=== PATIENT | male | born 1955 | race Caucasian/White ===

== ENCOUNTER → 2021-06-28 12:06 | Outpatient (CLI) | payer MEDICARE, OTHER, SELFPAY ==
--- NOTE | 2021-06-28 12:12 | DI.MRI.S_ITS ---
PROCEDURE: MR KNEE LT WO CON INDICATIONS: Other tear of medial meniscus, current injury, lef TECHNIQUE: Noncontrast sagittal PD fast spin echo and T2 fast spin echo with fat saturation, sagittal 3-D FLASH with fat saturation; coronal T1 spin echo and PD fast spin echo with fat saturation, and axial PD fast spin echo with fat saturation through the knee. COMPARISON: None. FINDINGS: Menisci: Medial meniscus: Intrasubstance signal changes extend to the superior articular surface of the body in keeping with tear. There is also ill-defined macerated tear involving the posterior horn/root junction. Partial extrusion of the medial meniscus is noted. Lateral meniscus:. Marked truncation of the free margin of the lateral meniscal body. Cruciate ligaments: Anterior cruciate ligament: Intact. Posterior cruciate ligament: Intact. Medial structures: The medial collateral ligament: Intact. Semimembranosus tendon: Mild insertional tendinopathy. Visualized pes anserinus tendons: Intact. Bursal fluid: none. Lateral structures: The lateral collateral ligament intact. Biceps femoris tendon appears intact. Popliteus tendon grossly unremarkable. Iliotibial band appears intact. Anterior structures: Quadriceps tendon: Intact. Medial patellofemoral ligament: Intact. Lateral patellofemoral ligament: Intact. Patellar tendon: Mild tendinopathy. Anterior soft tissues: Prepatellar and superficial infrapatellar subcutaneous edema/fluid. Deep infrapatellar region: Normal. Bones and cartilage: Marrow: No focal marrow contusion or discrete low signal fracture line. Medial compartment: Full-thickness femoral and tibial articular cartilage loss with subchondral marrow edema and cystic change. Lateral compartment: Diffuse partial-thickness femoral and tibial cartilage loss. Patellofemoral compartment: Mild diffuse partial-thickness loss of the patellar cartilage with near full-thickness areas of fissuring and subchondral edema/cystic change involving the lateral patellar facet. The femoral trochlear cartilage appears grossly intact. Joint space: Effusion: Large joint effusion. Popliteal fossa: Cyr's cyst which may be partially ruptured. It measures approximately 6 cm in the cephalocaudal dimension. Loose bodies: None. IMPRESSION: Medial meniscal tear involving the body and junction of the posterior horn and root, with partial extrusion. Marked truncation of the free margin of the lateral meniscal body. Severe degenerative joint disease with full-thickness articular cartilage loss in the medial compartment. Large joint effusion Partially ruptured Cyr's cyst Mild patellar tendinopathy Dictated by: Estuardo Nielsen M.D. on 06/28/2021 at 13:21 Approved by: Estuardo Nielsen M.D. on 06/28/2021 at 13:27
== END ==
PROVIDERS: PCP Family Medicine; Referring Provider Orthopaedic Surgery; Visit Provider Orthopaedic Surgery
DX: S83.242A Other tear of medial meniscus, current injury, left knee, initial encounter (principal); M17.12 Unilateral primary osteoarthritis, left knee; M71.22 Synovial cyst of popliteal space [Baker], left knee; M25.462 Effusion, left knee; X58.XXXA Exposure to other specified factors, initial encounter
CPT/HCPCS: 73721

== ENCOUNTER → 2022-01-30 09:52 | Outpatient (CLI) | payer MEDICARE, OTHER, SELFPAY ==
[2022-01-30 11:30] LABS: Prostate Specific Antigen 0.473 ng/mL (0.10-4.00)
== END ==
PROVIDERS: PCP Family Medicine; Referring Provider Specialist; Visit Provider Specialist
DX: R97.20 Elevated prostate specific antigen [PSA] (principal); N40.0 Benign prostatic hyperplasia without lower urinary tract symptoms; R36.1 Hematospermia; Z68.26 Body mass index [BMI] 26.0-26.9, adult
CPT/HCPCS: 36415; 51798; 81002; 84153; 99214

== ENCOUNTER → 2022-09-03 15:02 | Outpatient (CLI) | payer MEDICARE, OTHER, SELFPAY ==
[2022-09-03 16:04] LABS: Prostate Specific Antigen 1.27 ng/mL (0.10-4.00)
== END ==
PROVIDERS: PCP Family Medicine; Referring Provider Specialist; Visit Provider Specialist
DX: N40.0 Benign prostatic hyperplasia without lower urinary tract symptoms (principal)
CPT/HCPCS: 36415; 84153

== ENCOUNTER → 2022-11-08 08:39 | Outpatient (CLI) | payer MEDICARE, OTHER, SELFPAY ==
[2022-11-08 10:20] LABS: HEMOLYSIS < 15 (0-50)
[2022-11-08 10:25] LABS: BUN Creatinine Ratio 23.1 (6-22); Blood Urea Nitrogen 24 mg/dL (9-20); Calcium 9.3 mg/dL (8.4-10.2); Carbon Dioxide 27 mmol/L (22-32); Chloride 105 mmol/L (98-107); Estimated Glomerular Filt Rate > 60 mL/min (>60); Glucose 85 mg/dL (80-110); Potassium 4.6 mmol/L (3.4-5.1); Sodium 140 mmol/L (137-145)
[2022-11-14 20:21] LABS: Prostate Specific Antigen 0.958 ng/mL (0.10-4.00)
== END ==
PROVIDERS: PCP Family Medicine; Referring Provider Specialist; Visit Provider Specialist
DX: Z01.812 Encounter for preprocedural laboratory examination (principal); N40.0 Benign prostatic hyperplasia without lower urinary tract symptoms; R36.1 Hematospermia
CPT/HCPCS: 36415; 80048; 84153

== ENCOUNTER → 2022-11-11 10:48 | Outpatient (CLI) | payer MEDICARE, OTHER, SELFPAY ==
--- NOTE | 2022-11-11 10:50 | DI.CT.S_ITS ---
PROCEDURE: CT IVP A/P W/WO INDICATIONS: Hematuria TECHNIQUE: 5 mm thick noncontrast images acquired from the diaphragm to the symphysis pubis. After the administration of intravenous contrast, 5 mm thick images acquired from the diaphragm to the symphysis pubis after a 10-minute delay using a split bolus technique. 2 mm thick coronal and sagittal reformats were then performed of the kidneys and ureters. For radiation dose reduction, the following was used: automated exposure control, adjustment of mA and/or kV according to patient size. COMPARISON: None. FINDINGS: Lung bases: No pleural effusion. Some irregular and bandlike opacities present in both lung bases with areas of clustered micro nodularity also likely present. Urinary system: No urinary stone or hydroureteronephrosis. A few renal cysts are present without suspicious features identified. Scattered subcentimeter renal hypodensities are also present which are too small to characterize but are statistically likely to represent benign cysts. The opacified portions of the renal collecting systems and ureters are unremarkable without a definite filling defect demonstrated. Much of the left mid and distal ureter is not opacified and not well evaluated. Other solid organs: Few liver cysts and scattered hypodensities too small to characterize. Gallbladder is unremarkable . Biliary system is non dilated. Pancreas enhances normally. Spleen is normal in size and enhancement. No adrenal nodules. Peritoneum and bowel: Bowel loops demonstrate normal wall thickness and caliber. No free fluid or air. Nodes and vessels: No retroperitoneal or mesenteric adenopathy by size criteria. Aorta and inferior vena cava are normal in size. Pelvis: No pathologic free pelvic fluid. No adenopathy. Bones: Multilevel degenerative change of the visualized spine. IMPRESSION: 1. No urinary stone visualized. No definite evidence of a solid renal mass or upper tract urothelial neoplasm. 2. Bandlike and micronodular opacities at the imaged lung bases, likely scarring and/or nonspecific sequela of infection/inflammation. Dictated by: Germán Reid M.D. on 11/11/2022 at 12:43 Approved by: Germán Reid M.D. on 11/11/2022 at 13:09
== END ==
PROVIDERS: PCP Family Medicine; Referring Provider Specialist; Visit Provider Specialist
DX: R36.1 Hematospermia (principal); N40.0 Benign prostatic hyperplasia without lower urinary tract symptoms
CPT/HCPCS: 74178